=== PATIENT | male | born 1965 | race African-American/Black ===

== ENCOUNTER 2018-06-08 08:30 | Outpatient (CLI) | payer MEDICARE ==
[2018-06-08] MEDS ORDERED: ISOVUE-370 76%-LOCM 1 ML ONE (10:07)
--- NOTE | 2018-06-08 11:15 | CT ---
ABDOMEN AND PELVIC CT SCAN WITH AND WITHOUT IV CONTRAST: HISTORY: R31.21, hematuria, microhematuria for the past year. FINDINGS: The lung bases are clear. There are some fatty changes in the liver with some minimal fatty sparing adjacent to the gallbladder which is somewhat small in caliber without evidence for pericholecystic f at stranding. Pancreas, spleen, and adrenal glands are unremarkable. There are multiple bilateral r enal cysts up to 33 cm on the right side. No renal calculus or acute obstruction. No solid enhan cing renal mass. Urinary bladder is unremarkable. Bilateral fat-containing inguinal hernias, larger on the left side. IMPRESSION: No evidence for renal calculus or obstruction or solid enhancing renal mass. Bilateral renal cyst s. Fatty changes in the liver. Fat-containing inguinal hernias slightly larger on the left. POS: [facility]
== END 2018-06-08 08:31 | disposition home or self-care (01) ==
LOC: BICCT 08:30
PROVIDERS: ATTEND Urology
DX: R31.9 Hematuria, unspecified (principal); N28.1 Cyst of kidney, acquired; K76.0 Fatty (change of) liver, not elsewhere classified; K40.90 Unilateral inguinal hernia, without obstruction or gangrene, not specified as recurrent
CPT/HCPCS: 74178